=== PATIENT | female | born 1960 | race Caucasian/White ===

== ENCOUNTER → 2016-08-22 | Outpatient (CLI) | payer OTHER ==
[2016-08-22 19:44] LABS: Basophils # (A) 0.1 k/uL (0-0.2); Basophils % (A) 1 %; CH 30.1; CHCM 32.5; Eosinophils # (A) 0.1 k/uL (0-0.7); Eosinophils % (A) 1 %; HCT 53.1 % (34.0-46.0); HDW 2.26; HGB 16.9 gm/dL (11.4-16.0); Luc # (Auto) 0.13; Luc % (Auto) 2; Lymphocytes # (A) 1.8 k/uL (1.0-4.8); Lymphocytes % (A) 24 %; MCH 29.6 pg (25.0-35.0); MCHC 31.9 g/dL (31.0-37.0); MCV 92.8 fL (80.0-100.0); Mean Platelet Volume 6.9; Monocytes # (A) 0.5 k/uL (0-1.0); Monocytes % (A) 7 %; Neutrophils % (A) 66 %; RBC 5.72 m/uL (3.80-5.40); RDW 13.1 % (11.5-15.5); WBC 7.6 k/uL (3.8-10.6); WBC (Perox) 7.88
[2016-08-22 19:46] LABS: ALT 40 U/L (9-52); AST 14 U/L (14-36); Alkaline Phosphatase 92 U/L (38-126); Anion Gap 11 mmol/L; Blood Urea Nitrogen 14 mg/dL (7-17); Calcium 9.6 mg/dL (8.4-10.2); Carbon Dioxide 23 mmol/L (22-30); Chloride 103 mmol/L (98-107); Cholesterol 267 mg/dL (<200); Glucose 376 mg/dL (74-99); HDL Cholesterol 41 mg/dL (40-60); Non-African American GFR(MDRD) >60 (>60 ml/min/1.73 sqM); Sodium 137 mmol/L (137-145); Total Bilirubin 0.6 mg/dL (0.2-1.3); Total Protein 6.6 g/dL (6.3-8.2); Triglycerides 247 mg/dL (<150)
[2016-08-22 20:30] LABS: Vitamin B12 565 pg/mL (239-931)
[2016-08-22 22:04] LABS: Hemoglobin A1C 13.5 % (4.2-6.1)
== END ==
LOC: MMGSC 14:33
PROVIDERS: ATTEND Family Medicine
DX: E11.9 Type 2 diabetes mellitus without complications (principal); R53.83 Other fatigue
CPT/HCPCS: 36415; 80053; 80061; 82043; 82306; 82607; 83036; 84439; 84443; 85025

== ENCOUNTER → 2023-03-18 | Outpatient (CLI) | payer MEDICARE, OTHER ==
--- NOTE | 2023-03-18 21:48 | CT ---
EXAMINATION TYPE: CT brain wo con DATE OF EXAM: 03/18/2023 COMPARISON: None HISTORY: 63-year-old female Z97.8 PRESENCE OF OTHER SPECIFIED DEVICES There is a follow up shunt TECHNIQUE: Examination was done in axial plane without intravenous contrast. Coronal and sagittal r econstructions performed. CT DLP: 1192 mGycm Automated exposure control for dose reduction was used. FINDINGS: There is previous right frontotemporal craniotomy flap. Right frontal approach BP shunt catheter, tip just to the right of midline near the region of the foramen of Monro. There is mild calvarial artifa cts causing slight limitation. There is mild prominence to the ventricular system. No priors are available for comparison purposes. There is no evidence of acute intracranial hemorrhage, acute ischemic changes, mass, mass-effect, or extra-axial fluid collection. There is no effacement of cerebral sulci or basal subarachnoid cister ns. There is no midline shift. Moscoso-white matter distinction is preserved. Asymmetric enlargement of the temporal horn of the right lateral ventricle is present. There are scattered calcifications in the carotid siphons. White matter hypodensity in the right subinsular region. Partially empty sella. Paranasal sinuses and mastoid air cells well pneumatized. Orbits and globes are intact. IMPRESSION: 1. Mild ventricular prominence. No priors available for comparison purposes. Right frontal approach V P shunt catheter has its tip just to the right of midline near the region of the foramen of Ramos. 2. Previous right frontotemporal craniotomy flap. Some asymmetric enlargement of the temporal horn ri ght lateral ventricle and some adjacent subinsular encephalomalacia on the right possibly postsurgica l change or changes of chronic small vessel ischemic disease. 3. No acute intracranial abnormality seen.
== END | disposition home or self-care (01) ==
LOC: RADCTMAIN 10:41
PROVIDERS: ATTEND Nurse Practitioner Acute Care
DX: G93.89 Other specified disorders of brain (principal); Z98.2 Presence of cerebrospinal fluid drainage device; Z97.8 Presence of other specified devices
CPT/HCPCS: 70450

== ENCOUNTER → 2024-02-04 | Outpatient (CLI) | payer MEDICARE, OTHER ==
--- NOTE | 2024-02-09 11:34 | MR ---
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 Specialized thin s equences were obtained through the pituitary gland/sella turcica. Pre-and post gadolinium sequences were obtained. IV Contrast: 9.5 cc Gadavist FINDINGS: There is intrinsic high T1 signal within the pituitary gland measuring up to 10 x 7 mm sli ghtly left of midline. The royal-white junctions, ventricular system, and basal cisterns appear unremarkable After administr ation of gadolinium, there is persistent intrinsic high T1 signal within the area seen on precontrast imaging. No subtraction imaging was performed to definitively say there is enhancement. The intracra nial arterial flow voids are intact. Ventriculostomy catheter terminating in right lateral ventricle . IMPRESSION: Abnormal appearance of the pituitary gland with intrinsic high T1 signal possibly representing protei naceous contents/and/or blood products. Correlate with prior surgery. Correlate with prior MRI is at outside institution. No definitive postcontrast enhancement however there is intrinsic T1 signal with in the lesion in the pituitary gland. Short-term follow-up with subtraction imaging recommended. [facility], , 02/09/2024 11:32 AM
== END | disposition home or self-care (01) ==
LOC: RADMRIMAIN 13:57
PROVIDERS: ATTEND Neurological Surgery
DX: D59.6 Hemoglobinuria due to hemolysis from other external causes
CPT/HCPCS: 70553